=== PATIENT | male | born 1995 | race Caucasian/White ===

== ENCOUNTER 2017-03-24 10:11 | Emergency (ER) | payer SELFPAY ==
[2017-03-24 10:26] VITALS: BP 117/54; TEMP 98; O2SAT 99
[2017-03-24] MEDS ORDERED: methylPREDNISolone SODIUM SUC 125 MG/2 ML VIAL IM ONE (10:31)
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
--- NOTE | 2017-03-24 10:48 | RAD ---
EXAM DESCRIPTION: Chest,1 View CLINICAL HISTORY: dyspnea COMPARISON: 23 November 2012 TECHNIQUE: AP portable chest FINDINGS: The lungs are clear. There is no infiltrate or effusion. The heart is normal size. IMPRESSION: Normal portable chest Electronically signed by: Vikram Orantes MD 03/24/2017 10:47 AM [facility]
== END 2017-03-24 11:50 | disposition home or self-care (01) ==
LOC: ER 10:11
DX: T59.3X1A Toxic effect of lacrimogenic gas, accidental (unintentional), initial encounter (principal); J68.0 Bronchitis and pneumonitis due to chemicals, gases, fumes and vapors; Y92.149 Unspecified place in prison as the place of occurrence of the external cause; F17.220 Nicotine dependence, chewing tobacco, uncomplicated
CPT/HCPCS: 71010; J2930

== ENCOUNTER 2017-06-25 11:02 | Emergency (ER) | payer SELFPAY ==
[2017-06-25 11:21] VITALS: TEMP 97.8; O2SAT 97
--- NOTE | 2017-06-25 11:26 | ED.PDOC ---
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 - History of Present Illness Timing/Duration: abrupt Severity: moderate Prearrival Treatment: no prearrival treatment Improving Factors: nothing Worsening Factors: nothing Associated Symptoms: cough Allergies/Adverse Reactions: Allergies NO KNOWN ALLERGY Allergy (Verified 06/25/17 11:21) Home Medications: Ambulatory Orders Naproxen Sodium [Anaprox Ds] 550 mg PO BID #30 tab 06/20/14 Albuterol Inhaler [Ventolin Hfa Inhaler] 2 puff INH Q6HR #1 inh 03/24/17 Prednisone [Deltasone] 20 mg PO DAILY 5 Days #5 tab 03/24/17 Review of Systems - Review of Systems Constitutional: Denies: chills, fever EENTM: States: throat pain. 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: Denies: chest pain, palpitations, syncope Gastrointestinal/Abdominal: Denies: abdominal pain, nausea, vomiting Genitourinary: States: no symptoms reported Musculoskeletal: States: no symptoms reported Skin: States: no symptoms reported Neurological: States: no symptoms reported Endocrine: States: no symptoms reported Hematologic/Lymphatic: States: no symptoms reported Past Medical History (General) - Patient Medical History Hx Seizures: No Hx Asthma: No Hx Cardiac Disorders: No Hx Diabetes: No Surgical History: tonsillectomy, other - Vaccination History Hx Influenza Vaccination: No - Social History Hx Tobacco Use: Yes - snuff Hx Chewing Tobacco Use: Yes Hx Alcohol Use: No - Female History Patient is a Female of Child Bearing Age (10 -59 yrs old): No Patient : No Family Medical History - Family History Mother Family History: Unknown Physical Exam - Physical Exam General Appearance: Alert, No apparent distress Eye Exam: bilateral normal Ear Exam: bilateral ear: TM normal Nasal Exam: normal inspection Throat Exam: pharynx normal Neck: full range of motion, supple, normal inspection, other - TENDER ANT, NO ADENOPATHY Cardiovascular/Respiratory: regular rate, rhythm, no M/R/G Abdominal Exam: non-tender, no organomegaly Neurologic: alert, normal mood/affect Skin Exam: normal color, warm/dry Departure - Departure Clinical Impression: Viral pharyngitis Time of Disposition: 12:10 Disposition: Discharge to Home or Self Care Condition: Excellent Departure Forms: ED Discharge - Pt. Copy, Patient Portal Self Enrollment Instructions: Viral Pharyngitis, DI for Viral Pharyngitis Home Medications: Ambulatory Orders Naproxen Sodium [Anaprox Ds] 550 mg PO BID #30 tab 06/20/14 Albuterol Inhaler [Ventolin Hfa Inhaler] 2 puff INH Q6HR #1 inh 03/24/17 Prednisone [Deltasone] 20 mg PO DAILY 5 Days #5 tab 03/24/17 Additional Instructions: USE WARM SALT WATER GARGLES
--- NOTE | 2017-06-25 11:56 | RAD ---
PROCEDURE: Chest,2 Views CLINICAL HISTORY: COUGH INDICATION: Same as above COMPARISON: None TECHNIQUE: PA and and lateral chest radiographs were obtained. FINDINGS: The lung chapman are well inflated. There are no discrete airspace infiltrates, pneumothoraces or pleural effusions. The pulmonary vascularity is normal The cardiomediastinal silhouette is unremarkable for patient's age and sex. IMPRESSION: There is no acute pleural-parenchymal process seen in the imaged lung chapman. Place of interpretation: [facility]. Electronically signed by: Gene White MD 06/25/2017 11:54 AM CDT Workstation: [id number]
[2017-06-25] MEDS ORDERED: DEXAMETHASONE INJ 10 MG/ML VIAL IM ONE (12:14)
[2017-06-25 12:35] VITALS: BP 107/71
== END 2017-06-25 12:33 | disposition home or self-care (01) ==
LOC: ER 11:02
DX: J02.8 Acute pharyngitis due to other specified organisms (principal); B34.9 Viral infection, unspecified; F17.220 Nicotine dependence, chewing tobacco, uncomplicated
CPT/HCPCS: 36415; 71046; 86403; 87070; 87880; J1100

== ENCOUNTER 2018-04-27 06:49 | Emergency (ER) | payer SELFPAY ==
[2018-04-27 07:15] VITALS: BP 103/68; TEMP 96.7; O2SAT 98
[2018-04-27] MEDS ORDERED: KETOROLAC TROMETHAMINE INJ 60 MG/2 ML VIAL IM ONE (07:22)
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
== END 2018-04-27 07:38 | disposition home or self-care (01) ==
LOC: ER 06:49
DX: M25.562 Pain in left knee (principal); G89.29 Other chronic pain; Z87.891 Personal history of nicotine dependence

== ENCOUNTER 2018-05-10 12:46 | Emergency (ER) | payer SELFPAY ==
[2018-05-10] MEDS: ONDANSETRON ODT 8 MG TAB SL ONE (13:26)
--- NOTE | 2018-05-10 14:08 | ED.PDOC ---
History of Present Illness - General Chief Complaint: GI Problem Stated Complaint: n/v/d Time Seen by Provider: 05/10/18 12:47 Source: patient Exam Limitations: no limitations - History of Present Illness Initial Comments: The patient is a 22-year-old male who presents to the emergency room secondary to symptoms of nausea and vomiting and diarrhea since around 5 AM this morning. No blood and no bile in the vomitus. No blood in the stool. No real abdominal pain. He has only had nausea. He does have sick contacts in his ex- and his daughter. No fever. No sore throat. Minimal runny nose.the patient adamantly refuses IV hydration. He reports that he is only here because his employer has made him come here. Timing/Duration: 4-6 hours Severity: moderate Improving Factors: nothing Worsening Factors: nothing Associated Symptoms: malaise, nausea/vomiting Allergies/Adverse Reactions: Allergies NO KNOWN ALLERGY Allergy (Verified 06/25/17 11:21) Home Medications: Ambulatory Orders Ondansetron [Zofran Odt] 4 mg PO Q4H PRN #10 tab 05/10/18 Review of Systems - Review of Systems Constitutional: States: malaise EENTM: States: nose congestion Respiratory: States: no symptoms reported Cardiology: States: no symptoms reported Gastrointestinal/Abdominal: States: diarrhea, nausea, vomiting Genitourinary: States: no symptoms reported Musculoskeletal: States: no symptoms reported Skin: States: no symptoms reported Neurological: States: no symptoms reported Endocrine: States: no symptoms reported All other Systems: No Change from Baseline Past Medical History (General) - Patient Medical History Hx Seizures: No Hx Stroke: No Hx Asthma: No Hx Cardiac Disorders: No Hx Congestive Heart Failure: No Hx Diabetes: No Surgical History: other - Vaccination History Hx Influenza Vaccination: Yes - 2017 - Social History Hx Tobacco Use: No Hx Chewing Tobacco Use: Yes Hx Alcohol Use: No - Female History Patient : No Family Medical History - Family History Mother Family History: Unknown Physical Exam - Physical Exam General Appearance: Alert, No apparent distress, Other - he does appear tired Eye Exam: bilateral normal Ears, Nose, Throat: hearing grossly normal, normal ENT inspection, normal pharynx Neck: full range of motion, supple, normal inspection Respiratory: lungs clear, normal breath sounds, no respiratory distress, no accessory muscle use Cardiovascular/Chest: normal peripheral pulses, regular rate, rhythm, no edema Peripheral Pulses: radial,right: 2+, radial,left: 2+, dorsalis pedis,right: 2+, dorsalis pedis,left: 2+ Gastrointestinal/Abdominal: non tender, soft Rectal Exam: deferred Back Exam: no CVA tenderness, no vertebral tenderness Extremity: non-tender, normal inspection, no pedal edema, normal capillary refill 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 He has tested negative for strep and flu. He will be written for Zofran for as needed use to control the nausea and vomiting to allow him to keep himself hydrated. He can use small doses of Imodium as needed to help reduce the diarrhea. ER warnings were given. He is contagious at this point. Keep follow-up with primary care doctor in coming weeks. Departure - Departure Clinical Impression: Gastroenteritis Disposition: Discharge to Home or Self Care Condition: Fair Departure Forms: ED Discharge - Pt. Copy, Patient Portal Self Enrollment Instructions: DI for Diarrhea and Traveler's Diarrhea -- Adult Diet: bland diet Activity: increase activity as tolerated Prescriptions: Ondansetron [Zofran Odt] 4 mg PO Q4H PRN #10 tab PRN Reason: Vomiting Home Medications: Ambulatory Orders Ondansetron [Zofran Odt] 4 mg PO Q4H PRN #10 tab 05/10/18 Additional Instructions: the patient is a 22-year-old male presenting to the emergency room with what is most likely a viral gastroenteritis. He has tested negative for strep and flu. He will be written for Zofran for as needed use to control the nausea and vomiting to allow him to keep himself hydrated. He can use small doses of Imodium as needed to help reduce the diarrhea. ER warnings were given. He is contagious at this point. Keep follow-up with primary care doctor in coming we jaqueline.
[2018-05-10 14:20] VITALS: BP 114/83; TEMP 96.8; O2SAT 98
== END 2018-05-10 14:20 | disposition home or self-care (01) ==
LOC: ER 12:46
DX: K52.9 Noninfective gastroenteritis and colitis, unspecified (principal); Z87.891 Personal history of nicotine dependence

== ENCOUNTER 2018-05-29 06:03 | Emergency (ER) | payer SELFPAY ==
[2018-05-29] MEDS ORDERED: IBUPROFEN 200 MG TAB PO ONE (06:33)
[2018-05-29] MEDS ORDERED: CETIRIZINE HCL 10 MG TAB PO ONE (06:34)
--- NOTE | 2018-05-29 06:37 | ED.PDOC ---
History of Present Illness - General Source: patient Exam Limitations: no limitations - History of Present Illness Initial Comments: The patient's 22-year-old male presenting to emergency room secondary to cough, congestion, sore throat, runny nose with occasional coughing until he vomits for the last 24 hours. He has been exposed to multiple sick people in the form of his in-laws. No history of any pneumonia orasthma in the past. He has had a fever. He reports he has a headache as well and feels terrible. Timing/Duration: 24 hours Improving Factors: nothing Worsening Factors: nothing Associated Symptoms: cough, fever/chills, headaches, loss of appetite, malaise, weakness <Niels Perez - Last Filed: 05/29/18 06:35> <Babatunde Harris - Last Filed: 05/29/18 08:03> - General Chief Complaint: Respiratory Problem Stated Complaint: runny nose, scratchy throat,cough Time Seen by Provider: 05/29/18 06:21 - History of Present Illness Allergies/Adverse Reactions: Allergies NO KNOWN ALLERGY Allergy (Verified 06/25/17 11:21) Home Medications: Ambulatory Orders Azithromycin [Zithromax Z-Oneil] 500 mg PO DAILY 3 Days #6 tab 05/29/18 Benzonatate Perles [Tessalon Perles] 200 mg PO TID #30 cap 05/29/18 Review of Systems - Review of Systems Constitutional: States: chills, fever, malaise EENTM: States: nose congestion, throat pain Respiratory: States: cough Cardiology: States: no symptoms reported Gastrointestinal/Abdominal: States: no symptoms reported, vomiting - ith cough only Genitourinary: States: no symptoms reported Musculoskeletal: States: no symptoms reported - generalized body aches Skin: States: no symptoms reported Neurological: States: headache Endocrine: States: no symptoms reported All other Systems: No Change from Baseline <Niels Perez - Last Filed: 05/29/18 06:35> Past Medical History (General) - Patient Medical History Hx Seizures: No Hx Stroke: No Hx Asthma: No Hx Cardiac Disorders: No Hx Congestive Heart Failure: No Hx Diabetes: No Surgical History: no surgical history - Vaccination History Hx Influenza Vaccination: Yes - Social History Hx Tobacco Use: No Hx Chewing Tobacco Use: Yes Hx Alcohol Use: No - Female History Patient : No <ChrisNiels Collin - Last Filed: 05/29/18 06:35> Family Medical History - Family History Mother Family History: Unknown <Niels Perez Collin - Last Filed: 05/29/18 06:35> Physical Exam - Physical Exam General Appearance: Alert, Comfortable, No apparent distress Eye Exam: bilateral normal Ears, Nose, Throat: hearing grossly normal, nasal congestion, pharyngeal e rythema Neck: full range of motion, supple Respiratory: lungs clear, normal breath sounds, no respiratory distress, no accessory muscle use Cardiovascular/Chest: normal peripheral pulses, regular rate, rhythm, no edema Peripheral Pulses: radial,right: 2+, radial,left: 2+, dorsalis pedis,right: 2+, dorsalis pedis,left: 2+ Gastrointestinal/Abdominal: non tender, soft Rectal Exam: deferred Back Exam: normal inspection, no CVA tenderness Extremity: non-tender, normal inspection, no pedal edema, normal capillary refill 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 The patient is being swabbed for influenza. Results are pending at this time. The tentative plan is to place the patient on Tamiflu if he turns up positive and if negative to use some azithromycin to cover for atypical bacterial pathogens that can give a similar picture, though a viral source is favored. He has received a dose of Zyrtec and Motrin as well. Needs to keep himself well-hydrated. Dr. Harris will be assuming care of the patient at shift change. no evidence of sepsis or hypoxia. Lungs are virtually clear at this time. <Niels Perez - Last Filed: 05/29/18 06:35> - Results/Orders Results/Orders: flu swab negative discuss result with patient <Babatunde Harris - Last Filed: 05/29/18 08:03> Departure <Niels Perez L - Last Filed: 05/29/18 06:35> - Departure Time of Disposition: 07:56 <EulaliaJohana jimenezo R - Last Filed: 05/29/18 08:03> - Departure Clinical Impression: Flu-like symptoms Upper respiratory infection Qualifiers: URI type: unspecified URI Qualified Code(s): J06.9 - Acute upper respiratory infection, unspecified Disposition: Discharge to Home or Self Care Condition: Fair Departure Forms: ED Discharge - Pt. Copy, Patient Portal Self Enrollment Instructions: Bacterial Upper Respiratory Infection, Adult (DC), Viral Upper Respiratory Infection, Adult (DC), How to Do a Nasal Rinse, Sodium Chloride Prescriptions: Azithromycin [Zithromax Z-Oneil] 500 mg PO DAILY 3 Days #6 tab Benzonatate Perles [Tessalon Perles] 200 mg PO TID #30 cap Home Medications: Ambulatory Orders Azithromycin [Zithromax Z-Oneil] 500 mg PO DAILY 3 Days #6 tab 05/29/18 Benzonatate Perles [Tessalon Perles] 200 mg PO TID #30 cap 05/29/18 Additional Instructions: Use nasal saline rinse both nostrils as needed;Take (over the counter )Aleve 2 tablets am /pm for pain;follow up with primary Md 31 may 2018 for recheck;Drink extra fluids
[2018-05-29 08:16] VITALS: BP 110/65; TEMP 97.3; O2SAT 98
== END 2018-05-29 08:16 | disposition home or self-care (01) ==
LOC: ER 06:03
DX: J06.9 Acute upper respiratory infection, unspecified (principal); J11.1 Influenza due to unidentified influenza virus with other respiratory manifestations; Z87.891 Personal history of nicotine dependence

== ENCOUNTER 2018-09-03 10:39 | Emergency (ER) | payer SELFPAY ==
[2018-09-03 11:04] VITALS: TEMP 96.9; O2SAT 98
--- NOTE | 2018-09-03 11:06 | ED.PDOC ---
History of Present Illness - General Chief Complaint: Bite: Animal/Insect/Human Time Seen by Provider: 09/03/18 10:59 Source: patient Exam Limitations: no limitations - History of Present Illness Initial Comments: Bitten by pit bull dog [employer] while working at [employer] Timing/Duration: 1/2 hour Severity: moderate Improving Factors: immobilization Worsening Factors: movement Associated Symptoms: denies symptoms Allergies/Adverse Reactions: Allergies NO KNOWN ALLERGY Allergy (Verified 06/25/17 11:21) Home Medications: Ambulatory Orders Amoxicillin & Pot Clavulanate [Augmentin Tab] 875 mg PO BID #10 tab 09/03/18 Tramadol HCl 50 mg PO Q4HR PRN #15 tab 09/03/18 Review of Systems - Review of Systems Constitutional: States: no symptoms reported Skin: States: lesions - Bite wounds to L ring finger Neurological: States: no symptoms reported. Denies: numbness, paresthesia Past Medical History (General) - Patient Medical History Hx Seizures: No Hx Stroke: No Hx Asthma: No Hx Cardiac Disorders: No Hx Congestive Heart Failure: No Hx Diabetes: No - Vaccination History Hx Influenza Vaccination: Yes - Social History Hx Tobacco Use: No Hx Chewing Tobacco Use: Yes Hx Alcohol Use: No - Female History Patient : No Family Medical History - Family History Mother Family History: Unknown Physical Exam - Physical Exam General Appearance: Alert, Anxious Extremity: other - PW's to distal L ring finger at DIP joint, trace edema, tender without deformity Neurologic: no motor/sensory deficits Skin Exam: normal color, warm/dry Departure - Departure Clinical Impression: Bite wound Disposition: Discharge to Home or Self Care Condition: Fair Departure Forms: ED Discharge - Pt. Copy, Patient Portal Self Enrollment Instructions: DI for Animal Bites Prescriptions: Tramadol HCl 50 mg PO Q4HR PRN #15 tab PRN Reason: Mild To Moderate Pain Amoxicillin & Pot Clavulanate [Augmentin Tab] 875 mg PO BID #10 tab Home Medications: Ambulatory Orders Amoxicillin & Pot Clavulanate [Augmentin Tab] 875 mg PO BID #10 tab 09/03/18 Tramadol HCl 50 mg PO Q4HR PRN #15 tab 09/03/18
--- NOTE | 2018-09-03 11:18 | RAD ---
EXAM DESCRIPTION: Fingers,Left CLINICAL HISTORY: dog bite to ring finger COMPARISON: None. TECHNIQUE: 3 views left FINDINGS: I see no bone joint or soft tissue abnormality. No radiopaque foreign body is observed. IMPRESSION: Normal fourth digit of left hand Electronically signed by: Vikram Orantes MD 09/03/2018 11:16 AM CDT
== END 2018-09-03 12:15 | disposition home or self-care (01) ==
LOC: ER 10:39
DX: S61.255A Open bite of left ring finger without damage to nail, initial encounter (principal); W54.0XXA Bitten by dog, initial encounter; Z87.891 Personal history of nicotine dependence; Y99.0 Civilian activity done for income or pay; Y92.69 Other specified industrial and construction area as the place of occurrence of the external cause